=== PATIENT | female | born 1960 | race Hispanic/Latino ===

== ENCOUNTER 2021-11-20 07:44 | Day surgery (SDC) | payer OTHER ==
[2021-11-17 10:16] LABS: BASOPHILS % (AUTO) 0.7 % (0.0-5.0); EOSINOPHILS % (AUTO) 1.4 % (0.0-8.0); HEMATOCRIT 42.9 % (36-48); LYMPHOCYTES % (AUTO) 29.5 % (21.0-51.0); MEAN CORPUSCULAR HEMOGLOBIN 28.9 pg (27.0-33.0); MEAN CORPUSCULAR HGB CONC 32.2 g/dL (32.0-36.0); MEAN CORPUSCULAR VOLUME 89.7 fL (79-99); MONOCYTES % (AUTO) 8.3 % (3.0-13.0); NEUTROPHILS % (AUTO) 59.8 % (40.0-77.0); PLATELET COUNT (AUTO) 276 K/uL (130-400); RED BLOOD CELL COUNT(AUTO) 4.78 MIL/uL (4.00-5.50)
[2021-11-17 10:21] LABS: CREATININE 0.7 mg/dL (0.5-1.5); POTASSIUM 4.4 mmol/L (3.5-5.1)
[2021-11-17 10:40] LABS: INR 0.95 (0.85-1.15); PROTHROMBIN TIME 10.4 SEC (9.6-11.6)
[2021-11-17 10:41] LABS: PARTIAL THROMBOPLASTIN TIME 26.7 SEC (26.3-35.5)
[2021-11-18 08:39] VITALS: BP 100/64
[2021-11-20] VITALS (15 sets, daily range): BP systolic 92–151; BP diastolic 52–77
[~2021-11-20] VITALS: Ht 157.5 cm; Wt 65.0 kg
[~2021-11-20 07:44] MED LIST: AEC81 PO; ATOR10TA69 PO; CHOL500045 PO; EMPA25TA PO; LISI2.5T13 PO; MULT-1296 PO
[2021-11-20] MEDS: 0.9%NACL 1000ML 1,000 ML IV SCH ×2 (08:58→11:33)
[2021-11-20] MEDS ORDERED: FLUMAZENIL 0.1MG/1ML 5ML VIAL IV ONE (09:30)
[2021-11-20] MEDS ORDERED: NALOXONE HCL 0.4 MG/1 ML ML ONE (09:30)
[2021-11-20] MEDS ORDERED: LIDOCAINE HCL 2% VISCOUS 15 ML UDCUP ONE (09:30)
[2021-11-20] MEDS ORDERED: FENTANYL CITRATE PF 50 MCG/1 ML 2ML VIAL ONE (09:31)
[2021-11-20] MEDS ORDERED: MIDAZOLAM HCL 1 MG/ML 2ML VIAL ONE (09:32)
== END 2021-11-20 11:34 | disposition home or self-care (01) ==
LOC: DAH 07:44
PROVIDERS: ATTEND Internal Medicine Cardiovascular Disease
DX: I34.0 Nonrheumatic mitral (valve) insufficiency (principal); I31.4 Cardiac tamponade; I10 Essential (primary) hypertension; E11.9 Type 2 diabetes mellitus without complications; Z79.01 Long term (current) use of anticoagulants; Z79.899 Other long term (current) drug therapy; Z90.710 Acquired absence of both cervix and uterus; Z79.82 Long term (current) use of aspirin; Z98.890 Other specified postprocedural states
CPT/HCPCS: 36415; 80048; 82948; 85025; 85610; 85730; 93005; 93312; 93325; A4215; A4216; A4221; A4222; A4223 ×3; A4606; A4615; A4663; A7002; J2250; J3010; J7030 ×2; 99152; J2310; J3490